=== PATIENT | female | born 2000 | race Caucasian/White ===

== ENCOUNTER 2023-08-16 18:04 | Outpatient (CLI) | payer MEDICAID, SELFPAY ==
[2023-08-16 18:19] VITALS: BP 109/66; PULSE 86; PULSE 88; TEMP 37; O2SAT 99
[2023-08-16 19:06] LABS: Appearance Urine Slightly Cloudy (Clear); Bilirubin Urine Negative (Negative); Blood Urine Negative (Negative); Color Urine Light yellow (Yellow); Glucose Urine Negative (Negative); Ketones Urine Negative (Negative); Leukocyte Esterase Urine Negative (Negative); Nitrite Urine Negative (Negative); Protein Urine Negative (Negative); Specific Gravity Urine 1.015 (1.000-1.030); Urobilinogen Urine 0.2 (0.2-1.0)
[2023-08-16 19:28] LABS: RBC Urine 0-2 (0-2); WBC Urine 0-2 (0-5)
[2023-08-16 19:29] LABS: Clue Cells No Clue Cells Seen (None Seen); Trichomonas No Trichomonas Seen (None Seen); Yeast No Yeast Seen (None Seen)
== END 2023-08-16 19:55 | disposition home or self-care (01) ==
LOC: OB OUT 18:04 → OB 18:05
PROVIDERS: Visit Provider Student in an Organized Health Care Education/Training Program
DX: O47.02 False labor before 37 completed weeks of gestation, second trimester (principal); Z3A.21 21 weeks gestation of pregnancy
CPT/HCPCS: 81001; 81003; 87210; G0463

== ENCOUNTER 2023-08-23 18:34 | Outpatient (CLI) | payer MEDICAID, SELFPAY ==
[2023-08-23 18:44] VITALS: BP 109/69; PULSE 84; PULSE 85; O2SAT 100
[2023-08-23 19:03] VITALS: TEMP 36.8
[2023-08-23 19:06] LABS: Appearance Urine Cloudy (Clear); Bilirubin Urine Negative (Negative); Blood Urine Negative (Negative); Color Urine Yellow (Yellow); Glucose Urine Negative (Negative); Ketones Urine Negative (Negative); Leukocyte Esterase Urine Negative (Negative); Nitrite Urine Negative (Negative); Protein Urine Negative (Negative); Specific Gravity Urine 1.015 (1.000-1.030); Urobilinogen Urine 0.2 (0.2-1.0); pH Urine 8.5 (5.0-8.5)
[2023-08-23 19:18] LABS: RBC Urine 0-2 (0-2); WBC Urine 0-2 (0-5)
[2023-08-23 19:19] LABS: Amorphous Sediment Urine Moderate
[2023-08-23] MEDS: LACTATED RINGERS 1000 ML IV (19:45)
[2023-08-23] MEDS: ONDANSETRON 2 MG/ML inj 4 MG IVP (20:09)
[2023-08-23 20:11] LABS: Yeast No Yeast Seen (None Seen)
[2023-08-23 20:12] LABS: Clue Cells No Clue Cells Seen (None Seen); Trichomonas No Trichomonas Seen (None Seen)
--- NOTE | 2023-08-23 21:34 | P.OBLDTN_ITS ---
OB - Triage/Final Diagnosis Visit Information Time Seen by Provider: 21:34 Date Seen: 08/23/23 Date of evaluation: 08/23/23 Narrative: The patient is a 23 year old 3 para 0 at 22 weeks gestation , who presents with abdominal cramping. Patient had sharp abdominal pain at 2pm today. She came in for evaluation. has had more mild pain since. Intermittent sharp pain in the mid lower abdomen and sometimes on either side. She has had nausea and a couple episodes of vomiting today. Reports normal movement. No bleeding, gushes, abnormal discharge. No pain with urination. Patient states she earlier had pressure in her vagina like a bowling ball was coming out. She reports she is concerned about placental abruption and her baby dying. Reason for evaluation: threatened labor Evaluation Cervical dilation (cm): 0 Laboratory results: Laboratory Tests 08/23/23 08/23/23 Range/Units 19:59 18:57 Urine Color Yellow (Yellow) Urine Appearance Cloudy A (Clear) Urine pH 8.5 (5.0-8.5) Ur Specific Crawford 1.015 (1.000-1.030) Urine Protein Negative (Negative) Urine Glucose (UA) Negative (Negative) Urine Ketones Negative (Negative) Urine Blood Negative (Negative) Urine Nitrite Negative (Negative) Urine Bilirubin Negative (Negative) Urine Urobilinogen 0.2 (0.2-1.0) Ur Leukocyte Esterase Negative (Negative) Urine RBC 0-2 (0-2) Urine WBC 0-2 (0-5) Ur Squamous Epith Cells None (None-Few) Amorphous Sediment Moderate A (None) Urine Bacteria None (None) Vaginal Trichomonas No Trichomonas Seen (None Seen) Vaginal Yeast No Yeast Seen (None Seen) Vaginal Clue Cells No Clue Cells Seen (None Seen) Vital signs: Vital Signs - 24 hr 08/23/23 18:44 08/23/23 19:03 Temperature 98.2 F Pulse Rate 84 Blood Pressure 109/69 Pulse Oximetry 100 Comments: Resting comfortably in bed. Intermittently winces in pain. Abdominal exam shows no palpable contraction. Tender diffusely on abdomen, but especially at umbilicus (notable for small umbilical hernia) and tender over pubic symphisis. Speculum exam shows closed cervix, no significant discharge. Fetus (Single) Heart Rate Baseline: 140 Correction Variability: Moderate (6-25) Monitor Accelerations: Present Monitor Decelerations: None Final Diagnosis (1) Abdominal pain affecting : Status: Acute Problem details: Patient presents with intermittent abdominal pain. She has not had any contractions on monitor. Given 1 bag IV fluids with some improvement in severity. Baby FHT looks great for gestational age. Speculum exam is done for concern for cervical insufficiency, but cervix is visualized and is closed. UA and wet prep reassuring. I suspect patient may have pubic symphysis pain, umbilical hernia pain and some round ligament pain all causing significant anxiety (as patient declines taking her sertraline which she has been on historically). Baby reassuring. Discussed reasons to return to care and supportive cares in the meantime. Recommended miralax for bowel movements. Follow up in clinic with me on Saturday, sooner with concerns. Total Time Spent Total Time Spent: 35 minutes
--- NOTE | 2023-08-23 22:31 | PC.OBNST ---
NST Note NST Note Start: 08/23/23 18:32 Freq: ONCE Status: Discharge Protocol: Document 08/23/23 21:40 SDD (Rec: 08/23/23 22:30 SDD [id number]) NST Note 3 Para (# of births) 0 EDC 12/27/23 Gestational Age In Weeks & Days 22 Weeks & 0 Days Patient Presented with Complaint(s) of Pain,Nausea and vomiting If Pain, describe location Abdominal and back pain Other Complaints Nausea and heartburn Reactive Yes Appropriate for Gestational Age Yes RN Andrew Beaver Date 08/23/23 Reactive Yes Appropriate for Gestational Age Yes Alejandra Kevin Date 08/23/23 OB NST charge Yes Complete NST Note via Write Note Yes The provider's electronic signature indicates the NST is reactive/appropriate for gestational age. *Note to provider: If an addendum is required, open the patient's chart and click on the note under the Nurse/Allied Health tab.
== END 2023-08-23 21:46 | disposition home or self-care (01) ==
LOC: OB OUT 18:35 → OB 18:35
PROVIDERS: Visit Provider Family Medicine
DX: O26.899 Other specified pregnancy related conditions, unspecified trimester (principal); R10.9 Unspecified abdominal pain; Z3A.22 22 weeks gestation of pregnancy
CPT/HCPCS: 59025; 81001; 81003; 87210; G0463; J2405; J7120

== ENCOUNTER 2023-09-18 18:16 | Outpatient (CLI) | payer MEDICAID, SELFPAY ==
[2023-09-18] VITALS (9 sets, daily range): BP systolic 116; BP diastolic 63; PULSE 88–101; RESP 16; TEMP 36.8; O2SAT 98–99
[2023-09-18 19:00] LABS: Clue Cells No Clue Cells Seen (None Seen); Trichomonas No Trichomonas Seen (None Seen); Yeast No Yeast Seen (None Seen)
--- NOTE | 2023-09-18 19:19 | PC.OBNST ---
NST Note NST Note Start: 09/18/23 18:25 Freq: ONCE Status: Active Protocol: Document 09/18/23 19:16 YU (Rec: 09/18/23 19:18 JRAmanda [id number]) NST Note 3 Para (# of births) 0 EDC 12/27/23 Gestational Age In Weeks & Days 25 Weeks & 5 Days Patient Presented with Complaint(s) of Contractions/cramping, Decreased movement Reactive No Appropriate for Gestational Age Yes MERON Barrera RN Date 09/18/23 Reactive No Appropriate for Gestational Age Yes MERON Elmore RN Date 09/18/23 OB NST charge Yes Complete NST Note via Write Note Yes The provider's electronic signature indicates the NST is reactive/appropriate for gestational age. *Note to provider: If an addendum is required, open the patient's chart and click on the note under the Nurse/Allied Health tab.
--- NOTE | 2023-10-16 07:46 | W.PM.NSTNOTE ---
NST Note NST Note NST Note: NST Note NST Note Start: 09/18/23 18:25 Freq: ONCE Status: Discharge Protocol: Document 09/18/23 19:16 YU (Rec: 09/18/23 19:18 YU [id number]) NST Note 3 Para (# of births) 0 EDC 12/27/23 Gestational Age In Weeks & Days 25 Weeks & 5 Days Patient Presented with Complaint(s) of Contractions/cramping, Decreased movement Reactive No Appropriate for Gestational Age Yes MERON Barrera RN Date 09/18/23 Reactive No Appropriate for Gestational Age Yes MERON Elmore RN Date 09/18/23 OB NST charge Yes Complete NST Note via Write Note Yes Addendum: NST reviewed independently by myself. NST appropriate for gestational age. Baseline 140 BPM Accels No decels Moderate variability
== END 2023-09-18 19:30 | disposition home or self-care (01) ==
LOC: OB OUT 18:17 → OB 18:20
PROVIDERS: Visit Provider Student in an Organized Health Care Education/Training Program
DX: O36.8120 Decreased fetal movements, second trimester, not applicable or unspecified (principal); O47.02 False labor before 37 completed weeks of gestation, second trimester; Z3A.25 25 weeks gestation of pregnancy
CPT/HCPCS: 59025; 81003; 87210; G0463

== ENCOUNTER 2023-10-21 12:59 | Outpatient (CLI) | payer MEDICAID, SELFPAY ==
[2023-10-21] VITALS (16 sets, daily range): BP systolic 109–111; BP diastolic 59–65; PULSE 82–127; RESP 18; TEMP 36.9; O2SAT 93–99
[2023-10-21 15:04] LABS: Appearance Urine Clear (Clear); Bilirubin Urine Negative (Negative); Blood Urine Negative (Negative); Color Urine Yellow (Yellow); Glucose Urine Negative (Negative); Ketones Urine Negative (Negative); Leukocyte Esterase Urine Negative (Negative); Nitrite Urine Negative (Negative); Protein Urine 1+ (Negative); Specific Gravity Urine 1.025 (1.000-1.030); Urobilinogen Urine 0.2 (0.2-1.0); pH Urine 6.5 (5.0-8.5)
[2023-10-21 15:13] LABS: Amnisure Rom* Negative
[2023-10-21 15:27] LABS: RBC Urine 0-2 (0-2); WBC Urine 0-2 (0-5)
[2023-10-21 15:52] LABS: Bacterial Vaginosis* Negative (Negative); Candida glab/krus NOT DETECTED (No Detected); Candida species NOT DETECTED (No Detected); Trichomonas vaginalis NOT DETECTED (No Detected)
--- NOTE | 2023-10-21 18:10 | PC.OBNST ---
NST Note NST Note Start: 10/21/23 13:08 Freq: ONCE Status: Active Protocol: Document 10/21/23 18:09 YU (Rec: 10/21/23 18:10 JRAmanda [id number]) NST Note 3 Para (# of births) 0 EDC 12/27/23 Gestational Age In Weeks & Days 30 Weeks & 3 Days Patient Presented with Complaint(s) of Decreased movement,Other Other Complaints Vaginal bleeding Reactive Yes Appropriate for Gestational Age Yes MERON Barrera RN Date 10/21/23 Reactive Yes Appropriate for Gestational Age Yes MERON Patel RN Date 10/21/23 OB NST charge Yes Complete NST Note via Write Note Yes The provider's electronic signature indicates the NST is reactive/appropriate for gestational age. *Note to provider: If an addendum is required, open the patient's chart and click on the note under the Nurse/Allied Health tab.
--- NOTE | 2023-10-31 14:16 | PC.OBNST ---
NST Note NST Note Start: 10/21/23 13:08 Freq: ONCE Status: Discharge Protocol: Document 10/21/23 18:09 YU (Rec: 10/21/23 18:10 YU [id number]) NST Note 3 Para (# of births) 0 EDC 12/27/23 Gestational Age In Weeks & Days 30 Weeks & 3 Days Patient Presented with Complaint(s) of Decreased movement,Other Other Complaints Vaginal bleeding Reactive Yes Appropriate for Gestational Age Yes RN Alysa Barrera RN Date 10/21/23 Reactive Yes Appropriate for Gestational Age Yes MERON Patel RN Date 10/21/23 OB NST charge Yes Complete NST Note via Write Note Yes The provider's electronic signature indicates the NST is reactive/appropriate for gestational age. *Note to provider: If an addendum is required, open the patient's chart and click on the note under the Nurse/Allied Health tab.
== END 2023-10-21 16:45 | disposition home or self-care (01) ==
LOC: OB OUT 13:00 → OB 13:01
PROVIDERS: Visit Provider Family Medicine
DX: O36.8930 Maternal care for other specified fetal problems, third trimester, not applicable or unspecified (principal); Z3A.30 30 weeks gestation of pregnancy
CPT/HCPCS: 59025; 81001; 81003; 81513; 84112; 87481; 87661; G0463

== ENCOUNTER 2023-11-14 16:33 | Outpatient (CLI) | payer OTHER, SELFPAY ==
[2023-11-14 16:53] VITALS: PULSE 84; O2SAT 98
[2023-11-14 16:54] VITALS: BP 110/65; PULSE 78
[2023-11-14 17:18] LABS: Appearance Urine Clear (Clear); Bilirubin Urine Negative (Negative); Blood Urine Negative (Negative); Color Urine Yellow (Yellow); Glucose Urine Negative (Negative); Ketones Urine Negative (Negative); Leukocyte Esterase Urine Trace (Negative); Nitrite Urine Negative (Negative); Protein Urine Trace (Negative); Specific Gravity Urine 1.025 (1.000-1.030); Urobilinogen Urine 0.2 (0.2-1.0)
[2023-11-14 17:38] LABS: Bacteria Urine Few; Squamous Epithelial Cell Urine Few (None-Few)
[2023-11-14 17:39] LABS: Amnisure Rom* Negative; Clue Cells No Clue Cells Seen (None Seen); Trichomonas No Trichomonas Seen (None Seen); Yeast No Yeast Seen (None Seen)
--- NOTE | 2023-11-14 18:09 | PC.OBNST ---
NST Note NST Note Start: 11/14/23 17:56 Freq: Status: Active Protocol: Document 11/14/23 18:08 LEON (Rec: 11/14/23 18:08 LEON [id number]) NST Note 3 Para (# of births) 0 EDC 12/27/23 Gestational Age In Weeks & Days 33 Weeks & 6 Days Patient Presented with Complaint(s) of Leaking fluid Reactive Yes Appropriate for Gestational Age Yes MERON Crowell Date 11/14/23 Reactive Yes Appropriate for Gestational Age Yes MERON Marmolejo Date 11/14/23 OB NST charge Yes Complete NST Note via Write Note Yes The provider's electronic signature indicates the NST is reactive/appropriate for gestational age. *Note to provider: If an addendum is required, open the patient's chart and click on the note under the Nurse/Allied Health tab.
--- NOTE | 2023-11-24 19:36 | PC.OBNST ---
NST Note NST Note Start: 11/14/23 17:56 Freq: Status: Discharge Protocol: Document 11/14/23 18:08 LEON (Rec: 11/14/23 18:08 DIANA [id number]) NST Note 3 Para (# of births) 0 EDC 12/27/23 Gestational Age In Weeks & Days 33 Weeks & 6 Days Patient Presented with Complaint(s) of Leaking fluid Reactive Yes Appropriate for Gestational Age Yes MERON Crowell Date 11/14/23 Reactive Yes Appropriate for Gestational Age Yes MERON Marmolejo Date 11/14/23 OB NST charge Yes Complete NST Note via Write Note Yes The provider's electronic signature indicates the NST is reactive/appropriate for gestational age. *Note to provider: If an addendum is required, open the patient's chart and click on the note under the Nurse/Allied Health tab.
== END 2023-11-14 18:10 | disposition home or self-care (01) ==
LOC: OB OUT 16:36 → OB 16:36
PROVIDERS: Visit Provider Family Medicine
DX: O47.03 False labor before 37 completed weeks of gestation, third trimester (principal); Z3A.33 33 weeks gestation of pregnancy
CPT/HCPCS: 59025; 81001; 81003; 84112; 87086; 87210; G0463

== ENCOUNTER 2023-12-08 21:45 | Outpatient (CLI) | payer OTHER, SELFPAY ==
[2023-12-08 21:53] VITALS: BP 120/64; PULSE 100
--- NOTE | 2023-12-08 22:31 | PC.OBNST ---
NST Note NST Note Start: 12/08/23 21:50 Freq: ONCE Status: Active Protocol: Document 12/08/23 22:29 [facility] (Rec: 12/08/23 22:31 [facility] Desktop) NST Note 3 Para (# of births) 0 EDC 12/27/23 Gestational Age In Weeks & Days 37 Weeks & 2 Days Patient Presented with Complaint(s) of Decreased movement Reactive Yes Appropriate for Gestational Age Yes RN Alejandra Bach RN Date 12/08/23 Reactive Yes Appropriate for Gestational Age Yes MERON Fabian Date 12/08/23 OB NST charge Yes Complete NST Note via Write Note Yes The provider's electronic signature indicates the NST is reactive/appropriate for gestational age. *Note to provider: If an addendum is required, open the patient's chart and click on the note under the Nurse/Allied Health tab.
== END 2023-12-08 22:20 | disposition home or self-care (01) ==
LOC: OB OUT 21:46 → OB 21:47
PROVIDERS: Visit Provider Family Medicine
DX: O36.8130 Decreased fetal movements, third trimester, not applicable or unspecified (principal); Z3A.37 37 weeks gestation of pregnancy
CPT/HCPCS: 59025; G0463

== ENCOUNTER 2023-12-11 16:40 | Outpatient (CLI) | payer OTHER, SELFPAY ==
[2023-12-11] MEDS: ONDANSETRON 2 MG/ML inj 4 MG IVP (17:07)
[2023-12-11 17:39] LABS: Amnisure Rom* Negative
[2023-12-11 17:40] VITALS: BP 140/86; PULSE 113
[2023-12-11 17:42] VITALS: TEMP 36.8
[2023-12-11 17:55] VITALS: BP 128/80; PULSE 112
--- NOTE | 2023-12-11 19:18 | PM.OBLDTN ---
OB - Triage/Final Diagnosis Visit Information Date Seen: 12/11/23 Narrative: The patient is a 23 year old 3 para 0 at 37.5 weeks gestation, who presents with painful contractions. Evaluated in triage. SVE on presentation was 2/40/-3, recheck at 2 hours was relatively unchanged. Amnisure negative. FHT: moderate variability, baseline 140 bpm, accels, no decels. Unable to monitor contraction pattern due to patient movement. Suspect latent labor, plan to return home with vistaril/morphine. Patient agreeable to plan. Evaluation Laboratory results: Laboratory Tests 12/11/23 Range/Units 17:23 Membrane Rupture Negative Vital signs: Vital Signs - 24 hr 12/11/23 17:40 12/11/23 17:42 12/11/23 17:55 Temperature 98.3 F Pulse Rate 113 H 112 H Blood Pressure 140/86 H 128/80
--- NOTE | 2023-12-11 19:31 | W.PM.NSTNOTE ---
NST Note NST Note NST Note: FHT: moderate variability, baseline 140 bpm, accels, no decels. Reactive NST.
[2023-12-11] MEDS: hydrOXYzine pamoate 25 MG CAPSULE 100 MG PO (19:46)
[2023-12-11] MEDS: MORPHINE 10 MG/ML inj IM (19:46)
--- NOTE | 2023-12-11 21:05 | PC.OBNST ---
NST Note NST Note Start: 12/11/23 16:53 Freq: ONCE Status: Active Protocol: Document 12/11/23 21:03 RRP (Rec: 12/11/23 21:04 RRP [id number]) NST Note 3 Para (# of births) 0 EDC 12/27/23 Gestational Age In Weeks & Days 37 Weeks & 5 Days Patient Presented with Complaint(s) of Contractions/cramping,Pain If Pain, describe location back Reactive Yes Appropriate for Gestational Age Yes RN Grace Jane RN Date 12/11/23 Reactive Yes Appropriate for Gestational Age Yes MERON Aguirre RN Date 12/11/23 OB NST charge Yes Complete NST Note via Write Note Yes The provider's electronic signature indicates the NST is reactive/appropriate for gestational age. *Note to provider: If an addendum is required, open the patient's chart and click on the note under the Nurse/Allied Health tab.
== END 2023-12-11 20:05 | disposition home or self-care (01) ==
LOC: OB OUT 16:40 → OB 16:42 → OB OUT 16:45 → OB 16:47 → OB OUT 16:51 → OB 16:51
PROVIDERS: PCP Student in an Organized Health Care Education/Training Program; Visit Provider Student in an Organized Health Care Education/Training Program
DX: O47.1 False labor at or after 37 completed weeks of gestation (principal); Z3A.37 37 weeks gestation of pregnancy
CPT/HCPCS: 59025; 84112; G0463; A9270; J2270; J2405

== ENCOUNTER 2023-12-17 02:31 | Inpatient (IN) | payer OTHER, SELFPAY ==
[2023-12-17] VITALS (94 sets, daily range): BP systolic 92–198; BP diastolic 40–89; PULSE 85–163; RESP 16–20; TEMP 36.4–37.1; O2SAT 79–100; BMI 26.6
[2023-12-17 02:27] LABS: Amnisure Rom* POSITIVE
[2023-12-17 03:23] LABS: Basophils Absolute Auto 0.01 K/uL (0.00-0.30); Basophils Percent Auto 0.1 % (0.0-3.0); Eosinophils Absolute Auto 0.02 K/uL (0.00-0.50); Eosinophils Percent Auto 0.2 % (0.0-7.0); Immature Granulocytes Abs Auto 0.07 K/uL (0.00-0.30); Immature Granulocytes Pct Auto 0.7 %; Lymphocytes Percent Auto 16.5 % (20-44); Mean Corpuscular HGB Conc 33 gm/dL (32-36); Mean Corpuscular Hemoglobin 29 pg (26-34); Mean Corpuscular Volume 87 fL (80-100); Monocytes Percent Auto 5.2 % (0.0-11.0); Neutrophils Percent Auto 77.3 % (42.0-72.0); Platelet Count* 192 K/uL (140-440); RDW Coefficient of Variation % 17.3 % (11.5-15.5); Red Blood Count 4.51 m/uL (4.00-5.20); White Blood Count* 9.66 K/uL (4.50-11.00)
[2023-12-17 03:25] LABS: Slide Review Reflex No
[2023-12-17] MEDS: ACETAMINOPHEN 500 MG TABLET 1000 MG PO ×2 (03:30→21:04)
[2023-12-17] MEDS: ONDANSETRON ODT 4 MG TAB PO (03:30)
[2023-12-17] MEDS: LACTATED RINGERS 1000 ML 1,000 ML 1200 ML IV (05:50)
[2023-12-17] MEDS: ROPIVACAINE 0.2% 100 ml 100 ML 12 MG EPIDURAL (06:36)
[2023-12-17] MEDS: LIDOCAINE 2% (PF) 5 ML VIAL EPIDURAL (06:36)
--- NOTE | 2023-12-17 06:41 | P.ANBPRC_ITS ---
PFSH PFSH Social History Smoking Status: Never smoker Meds Home Medications and Allergies Home Medications ?Medication ?Instructions ?Recorded ?Confirmed ?Type sertraline 100 mg tablet 12.5 mg PO QDAY 08/16/23 12/17/23 History levothyroxine 25 mcg tablet 25 mcg PO DAILY 08/23/23 12/17/23 History (Synthroid) ondansetron 4 mg PO .PRN 08/23/23 12/17/23 History famotidine 20 mg tablet (Pepcid) 20 mg PO DAILY 11/14/23 12/17/23 History vit no.133-ferrous 1 tab PO DAILY 12/17/23 12/17/23 History fumarate 28 mg-folic acid 800 mcg tablet () Allergies Allergy/AdvReac Type Severity Reaction Status Date / Time alalex vera AdvReac Intermediate Verified 12/08/23 22:12 Results Labs Labs: Laboratory Results - last 24 hr 12/17/23 12/17/23 02:17 03:05 WBC 9.66 RBC 4.51 Hgb 13.0 Hct 39.0 MCV 87 MCH 29 MCHC 33 RDW Coeff of Calixto 17.3 H Plt Count 192 Neut % (Auto) 77.3 H Lymph % (Auto) 16.5 L Spencer % (Auto) 5.2 Eos % (Auto) 0.2 Baso % (Auto) 0.1 Neut # (Auto) 7.50 H Lymph # (Auto) 1.60 Spencer # (Auto) 0.50 Eos # (Auto) 0.02 Baso # (Auto) 0.01 Abs Immat Gran (auto) 0.07 Imm/Tot Granulo (auto) 0.7 Membrane Rupture POSITIVE Blood Type A Positive Antibody Screen NEGATIVE Vital Signs Vital Signs: Last Vital Signs Temp 98.4 F 12/17/23 05:45 Pulse 133 H 12/17/23 06:38 Resp 20 12/17/23 05:45 BP 111/59 L 12/17/23 06:38 Pulse Ox 100 12/17/23 06:36 Weight: 68.356 kg Height: 160.02 cm Anesthesia Procedures Epidural Insertion Patient Location: OB Start Time: 06:10 Stop Time: 06:45 Start Date: 12/17/23 Stop Date: 12/17/23 Reason for Block: primary anesthetic Patient Position: sitting Performed By: Brian Rivas Preanesthetic Checklist: IV checked, risks and benefits discussed, surgical consent, monitors and equipment checked, pre-op evaluation, timeout performed and anesthesia consent Prep: chlorhexidine gluconate Monitoring: blood pressure monitoring, radiographer cardiac catheterization, continuous pulse oximetry and heart rate Approach: midline Vertebral Space: lumbar (1-5) Needle Type: Tuohy needle Injection Technique: continuous catheter (catheter) Needle gauge: 17 Needle Length (cm): 10 cm Needle Insertion Depth (cm): 5 Catheter Gauge: 19 Catheter Type: multi-orifice Catheter at skin depth (cm): 10 Test Dose Result: negative and lidocaine 1.5% with epinephrine 1 to 200,000
[2023-12-17] MEDS: LACTATED RINGERS 500 ML 500 ML 125 ML IV (07:00)
--- NOTE | 2023-12-17 07:57 | P.OBHP_ITS ---
OB - H&P: HPI Labor/Induction History of Present Illness Time Seen by Provider: 07:57 Date Seen: 12/17/23 Chief Complaint: The patient is a 23 year old 3 para 0 at 38w4d weeks gestation, who presents with SROM and active labor. Patient had SROM at home at 10pm. She has been in latent labor for the last week, states contractions became much more intense after ROM. She arrived at 0130 to labor and delivery, had positive amnisure. She has changed from 2 cm to 5 cm, heath well. She feels well. Dating ultrasound shows 12/29/2023 as due date at 6 weeks. Chief complaint: maternity : 3 Para: 0 Date of last menstrual period: 03/22/23 Estimated date of delivery: 12/27/23 Gestational age based on last menstrual period: 38 Narrative: Isabel Ward is a 23 year old female who presents wtih SROM and active labor History of Present Dating criteria: based on LMP (and 6 week ultrasound) care: good care Ultrasounds: normal 1st trimester US and normal mid trimester US Narrative: has been complicated by anxiety (on low dose sertraline), nausea/vomiting, anemia (s/p iron infusions). Also has history of asthma. Has Labs Blood type: A (+) positive Rubella: immune RPR/VDLR: nonreactive GBS status: negative HBsAG: negative Review of Systems Status of ROS: Reports: 10 or more systems reviewed and unremarkable except as noted in History and below Meds Home Medications and Allergies Home Medications ?Medication ?Instructions ?Recorded ?Confirmed ?Type sertraline 100 mg tablet 12.5 mg PO QDAY 08/16/23 12/17/23 History levothyroxine 25 mcg tablet 25 mcg PO DAILY 08/23/23 12/17/23 History (Synthroid) ondansetron 4 mg PO .PRN 08/23/23 12/17/23 History famotidine 20 mg tablet (Pepcid) 20 mg PO DAILY 11/14/23 12/17/23 History vit no.133-ferrous 1 tab PO DAILY 12/17/23 12/17/23 History fumarate 28 mg-folic acid 800 mcg tablet () Allergies Allergy/AdvReac Type Severity Reaction Status Date / Time aloe vera AdvReac Intermediate Verified 12/08/23 22:12 OB - H&P: Exam Physical Exam: Vital signs: Temp Pulse Resp BP Pulse Ox 97.7 F 113 H 18 103/66 100 12/17/23 07:26 12/17/23 07:43 12/17/23 06:45 12/17/23 07:43 12/17/23 06:51 Constitutional: Constitutional: no acute distress Routine HEENT Exam: Head: Present atraumatic Routine Respiratory Exam: Respiratory: Present CTA bilaterally Routine Cardiovascular Exam: Cardiovascular: RRR, S1 and S2 Detailed Labor and Delivery Exam: Patient Gravid: Yes Dilation (cm): 5 Effacement (%): 90 Contraction frequency (min): 3 Tachysystole: No Contraction intensity: Strong/Firm Fetus (Single): Station: -2 Amniotic Membrane Status: SROM Amniotic Membrane Fluid Description: Clear Heart Rate Baseline: 130 Monitor Accelerations: Present Monitor Decelerations: None L olga Term Variability: Moderate (6-25) Routine Back/Spine/Pelvis Exam: Back/Spine: full ROM Routine Skin Exam: Present intact Routine Neurological Exam: Present alert and oriented X3 Routine Psychiatric Exam: Present normal affect OB - Results Labs Labs: Short CBC 12/17/23 Range/Units 03:05 WBC 9.66 (4.50-11.00) K/uL Hgb 13.0 (12.0-16.0) gm/dL Hct 39.0 (33.0-51.0) % Plt Count 192 (140-440) K/uL OB - Problem Based A/P Additional Plan (1) Term : Problem details: SROM at 10pm, making progress. Received epidural with good results. Status: Acute Plan: - recheck in 2 hours, start pitocin if not making change (2) Subclinical hypothyroidism: Problem details: on synthroid Status: Acute (3) Iron deficiency anemia: Problem details: s/p IV iron, admission hemoglobin looks good Status: Acute Delivery/Labor/Induction Plan Plan: expectant management
[2023-12-17] MEDS: ONDANSETRON 2 MG/ML inj 4 MG IV ×2 (08:26→14:31)
[2023-12-17] MEDS: FAMOTIDINE 20 MG TABLET PO (09:25)
[2023-12-17] MEDS: OXYTOCIN 30 unit/500 ML in NS 30 UNIT/500 ML BAG 300 UNIT IVPB (12:02)
--- NOTE | 2023-12-17 12:34 | PM.OBPNL ---
Subjective Time Seen by Provider: 10:39 Date Seen: 12/17/23 Narrative: Patient's HR and baby's HR were nearly identical. Patient reports feeling like her heart is racing. Objective Exam: Heart tachy but regular. no murmur. Lungs ctab. Anxious appearing Vital Signs: Last Vital Signs Temp 98.4 F 12/17/23 10:37 Pulse 113 H 12/17/23 12:30 Resp 18 12/17/23 06:45 BP 116/59 L 12/17/23 12:30 Pulse Ox 93 12/17/23 11:59 Pelvic Exam Dilation (cm): 10 Effacement (%): 100 Contractions Monitor mode: External Contraction Frequency: 3 Contraction pattern: Regular Contraction intensity: Strong/Firm Pitocin Rate (mU/min): 0 Assessment Assessment: active labor Station: -2 Amniotic Membrane Status: SROM Status: Category ll Heart Rate Baseline: 130 Long-Term Variability: Moderate (6-25) Monitor Accelerations: Present Monitor Decelerations: None Plan Plan: - scalp placed to better monitor baby/mom's heart rate - pushing started
--- NOTE | 2023-12-17 12:36 | W.PM.VAGDE_ITS ---
OB Procedure Vag Delivery Mother Details Mother Details: The patient is a 23 year-old, 3, Para 0, admitted on 12/17/23 at 38.3 Days gestation with SROM at 10pm on 12/15. : 3 Para: 0 Weeks Gestation: 38.4 Additional Details Amniotic Membrane Status: SROM Amniotic Membrane Rupture Date: 12/16/23 Amniotic Membrane Rupture Time: 22:00 Amniotic Membrane Fluid Description: Meconium Stained Analgesia/Anesthesia Type: Epidural Waterbirth: No Pitcoin: No Intrapartal Events: Mod/Heavy Meconium Fluid Labor Onset: 07:06 Complete: 10:04 Pushin:39 Heart: heart tones during second stage were very close to mom's HR. scalp was placed for monitoring more closely. FHT had deep variables with pushing, recovered. Near end of pushing required pushing on side to allow for recovery. Good variability. Baseline 135 Delivery Details Delivery Date: 12/17/23 Delivery Time: 11:59 Route of delivery: Gender: Male Infant Viability: Alive; Heart Rate Present Position at Delivery: OA Delivery Details: Patient was admitted after SROM at home. Was 2.5 cm on admission. Progressed well without intervention. Received epidural for analgesia. Became complete at 1004. I was called to bedside. We started pushing at 10:39. Patient pushed v laura effectively, delivering a viable male over intact perineum at 1159. Nuchal x 2, reduced 1 and delivered through 2nd. was placed on maternal abdomen.? Cord was clamped and cut after a 30-60 second delay by FOB who was in attendance. Due to meconium fluid, Rosario SAUNDERS was in attendance at delivery, please see her note for details. There was also terminal meconium fluid. Nose and mouth were bulb suctioned.? Infant weight pending. 1 Minute Interval Total Score: 8 5 Minute Interval Total Score: 9 Additional Details Shoulder Dystocia: No Placenta Delivery Time: 12:09 Placental Delivery Description: Spontaneous Delivery repair: Vicryl Procedure Done: Global Blood Loss: 100 Laceration: Vaginal - 1st Degree (small vaginal 1st degree tear was sutured for hemostasis) Episiotomy Description: None Blood Loss Measurement Type: QBL Bakri Used: No Sponge/Need Count Correct: Yes Cord Vessel Description: 3 Vessels, Nuchal Cord (x2), Reduced and Delivered through Event Summary Status: Mother and infant were stable after delivery. Disposition: no change
[2023-12-17] MEDS: IBUPROFEN 600 MG TABLET PO (15:45)
[2023-12-17] MEDS: BENZOCAINE/MENTHOL SPRAY 85 GM AEROSOL 1 APPLIC TOPICAL (21:05)
[2023-12-17] MEDS: LANOLIN CREAM 1 APPLIC TOPICAL (21:05)
[2023-12-18 02:00] VITALS: BP 122/73; PULSE 97; RESP 16; TEMP 36.4; O2SAT 96
[2023-12-18] MEDS: IBUPROFEN 600 MG TABLET PO ×2 (02:30→08:39)
[2023-12-18] MEDS: ACETAMINOPHEN 500 MG TABLET 1000 MG PO ×2 (05:39→13:12)
[2023-12-18 06:15] VITALS: BP 111/73; PULSE 83; RESP 16; TEMP 36.6; O2SAT 97
[2023-12-18 06:45] LABS: Hemoglobin* 11.4 gm/dL (12.0-16.0)
[2023-12-18 08:19] VITALS: BP 117/77; PULSE 87; RESP 16; TEMP 36.4; O2SAT 98
--- NOTE | 2023-12-18 08:33 | P.DS_ITS ---
DS: Providers Provider Date Seen: 12/18/23 Date of admission: 12/17/23 02:31 Primary care physician: Emily Xie MD Admitting Clinician: Kitty Gaona MD Attending Physician on discharge: Kitty Gaona MD DS: Diagnosis Discharge Diagnosis (1) Term : Status: Acute Problem details: SROM at 10pm, making progress. Received epidural with good results. (2) Subclinical hypothyroidism: Status: Acute Problem details: on synthroid (3) Iron deficiency anemia: Status: Acute Problem details: s/p IV iron, admission hemoglobin looks good Exam Const: Vital Signs, click to edit/add: Vital Signs - 24 hr 12/17/23 08:35 12/17/23 08:36 12/17/23 08:40 Temperature 98.0 F Pulse Rate Pulse Rate [Pulse Oximeter] Respiratory Rate Blood Pressure 110/50 L Blood Pressure [Ri ght Arm] Pulse Oximetry 99 Oxygen Delivery Me thod 12/17/23 08:45 12/17/23 08:50 12/17/23 08:53 Temperature Pulse Rate Pulse Rate [Pulse Oximeter] Respiratory Rate Blood Pressure 110/62 Blood Pressure [Ri ght Arm] Pulse Oximetry 97 97 Oxygen Delivery Me thod 12/17/23 08:55 12/17/23 09:00 12/17/23 09:05 Temperature Pulse Rate 101 H Pulse Rate [Pulse Oximeter] Respiratory Rate Blood Pressure 111/63 Blood Pressure [Ri ght Arm] Pulse Oximetry 98 97 97 Oxygen Delivery Me thod 12/17/23 09:10 12/17/23 09:11 12/17/23 09:15 Temperature Pulse Rate 121 H Pulse Rate [Pulse Oximeter] Respiratory Rate Blood Pressure 99/56 L Blood Pressure [Ri ght Arm] Pulse Oximetry 97 98 Oxygen Delivery Me thod 12/17/23 09:20 12/17/23 09:25 12/17/23 09:29 Temperature Pulse Rate 113 H Pulse Rate [Pulse Oximeter] Respiratory Rate Blood Pressure 102/58 L Blood Pressure [Ri ght Arm] Pulse Oximetry 97 97 Oxygen Delivery Me thod 12/17/23 09:30 12/17/23 09:33 12/17/23 09:35 Temperature 97.9 F Pulse Rate Pulse Rate [Pulse Oximeter] Respiratory Rate Blood Pressure Blood Pressure [Ri ght Arm] Pulse Oximetry 97 96 Oxygen Delivery Me thod 12/17/23 09:40 12/17/23 09:41 12/17/23 09:45 Temperature Pulse Rate 121 H Pulse Rate [Pulse Oximeter] Respiratory Rate Blood Pressure 118/70 Blood Pressure [Ri ght Arm] Pulse Oximetry 97 96 Oxygen Delivery Me thod 12/17/23 09:50 12/17/23 09:55 12/17/23 10:00 Temperature Pulse Rate Pulse Rate [Pulse Oximeter] Respiratory Rate Blood Pressure Blood Pressure [Ri ght Arm] Pulse Oximetry 97 96 97 Oxygen Delivery Me thod 12/17/23 10:05 12/17/23 10:11 12/17/23 10:25 Temperature Pulse Rate 141 H 133 H Pulse Rate [Pulse Oximeter] Respiratory Rate Blood Pressure 114/56 L 114/63 Blood Pressure [Ri ght Arm] Pulse Oximetry 97 Oxygen Delivery Me thod 12/17/23 10:37 12/17/23 10:41 12/17/23 10:56 Temperature 98.4 F Pulse Rate 133 H 134 H Pulse Rate [Pulse Oximeter] Respiratory Rate Blood Pressure 122/64 193/87 H Blood Pressure [Ri ght Arm] Pulse Oximetry Oxygen Delivery Me thod 12/17/23 10:58 12/17/23 11:10 12/17/23 11:13 Temperature Pulse Rate 126 H 137 H Pulse Rate [Pulse Oximeter] Respiratory Rate Blood Pressure 130/60 126/57 L Blood Pressure [Ri ght Arm] Pulse Oximetry 99 Oxygen Delivery Me thod 12/17/23 11:16 12/17/23 11:18 12/17/23 11:23 Temperature Pulse Rate Pulse Rate [Pulse Oximeter] Respiratory Rate Blood Pressure Blood Pressure [Ri ght Arm] Pulse Oximetry 93 79 L 98 Oxygen Delivery Me thod 12/17/23 11:25 12/17/23 11:28 12/17/23 11:33 Temperature Pulse Rate 122 H Pulse Rate [Pulse Oximeter] Respiratory Rate Blood Pressure 101/51 L Blood Pressure [Ri ght Arm] Pulse Oximetry 99 99 Oxygen Delivery Me thod 12/17/23 11:34 12/17/23 11:38 12/17/23 11:40 Temperature Pulse Rate 133 H Pulse Rate [Pulse Oximeter] Respiratory Rate Blood Pressure 94/50 L Blood Pressure [Ri ght Arm] Pulse Oximetry 85 L 99 Oxygen Delivery Me thod 12/17/23 11:44 12/17/23 11:48 12/17/23 11:49 Temperature Pulse Rate Pulse Rate [Pulse Oximeter] Respiratory Rate Blood Pressure Blood Pressure [Ri ght Arm] Pulse Oximetry 97 90 92 Oxygen Delivery Me thod 12/17/23 11:54 12/17/23 11:56 12/17/23 11:59 Temperature Pulse Rate 142 H Pulse Rate [Pulse Oximeter] Respiratory Rate Blood Pressure 115/64 Blood Pressure [Ri ght Arm] Pulse Oximetry 89 93 Oxygen Delivery Me thod 12/17/23 12:15 12/17/23 12:15 12/17/23 12:30 Temperature 97.8 F Pulse Rate 121 H 113 H Pulse Rate [Pulse Oximeter] Respiratory Rate Blood Pressure 118/56 L 116/59 L Blood Pressure [Ri ght Arm] Pulse Oximetry Oxygen Delivery Me thod 12/17/23 12:30 12/17/23 12:45 12/17/23 12:45 Temperature 98.4 F 98.6 F Pulse Rate 105 H Pulse Rate [Pulse Oximeter] Respiratory Rate Blood Pressure 116/64 Blood Pressure [Ri ght Arm] Pulse Oximetry Oxygen Delivery Me thod 12/17/23 13:00 12/17/23 13:00 12/17/23 13:05 Temperature 98.0 F Pulse Rate 116 H 100 Pulse Rate [Pulse Oximeter] Respiratory Rate Blood Pressure 156/89 H 119/72 Blood Pressure [Ri ght Arm] Pulse Oximetry Oxygen Delivery Me thod 12/17/23 13:05 12/17/23 13:15 12/17/23 13:15 Temperature 97.7 F 98.6 F Pulse Rate 85 Pulse Rate [Pulse Oximeter] Respiratory Rate Blood Pressure 121/71 Blood Pressure [Ri ght Arm] Pulse Oximetry Oxygen Delivery Me thod 12/17/23 13:30 12/17/23 13:30 12/17/23 13:45 Temperature 98.6 F Pulse Rate 96 101 H Pulse Rate [Pulse Oximeter] Respiratory Rate Blood Pressure 111/70 119/70 Blood Pressure [Ri ght Arm] Pulse Oximetry Oxygen Delivery Me thod 12/17/23 13:45 12/17/23 14:00 12/17/23 14:15 Temperature 98.0 F Pulse Rate 100 92 Pulse Rate [Pulse Oximeter] Respiratory Rate Blood Pressure 119/84 118/79 Blood Pressure [Ri ght Arm] Pulse Oximetry Oxygen Delivery Me thod 12/17/23 14:15 12/17/23 18:05 12/17/23 21:35 Temperature 98.0 F 97.9 F 98.1 F Pulse Rate Pulse Rate [Pulse Oximeter] 98 95 Respiratory Rate 16 16 Blood Pressure Blood Pressure [Ri ght Arm] 108/73 121/77 Pulse Oximetry 97 95 Oxygen Delivery Me thod Room Air Room Air 12/18/23 02:00 12/18/23 06:15 Temperature 97.5 F L 97.9 F Pulse Rate Pulse Rate [Pulse Oximeter] 97 83 Respiratory Rate 16 16 Blood Pressure Blood Pressure [Ri ght Arm] 122/73 111/73 Pulse Oximetry 96 97 Oxygen Delivery Me thod Room Air Room Air Documenting provider has reviewed patient's vital signs: yes Common normals: no apparent distress, average body habitus, oriented x3 and healthy appearing GI: Common normals: Normal to inspection, nondistended, normoactive bowel sounds present and soft to palpation Palpation: soft Other: Uterus firm at umbilicus Extremity: Common normals: normal to inspection and no pedal edema Neuro: Common normals: oriented x3 OB - DS: Summary Hospital Course Hospital Course: The patient is a 23 year old G 3 P 1 at 38+5 weeks gestation that was admitted to the Center on 12/17/23 for SROM. She had an uncomplicated vaginal delivery. She delivered a viable male infant. She is breast feeding, although plans to bottle EBM at home. the patient has done well. Peripartum Data Infant delivery method: Vaginal Laceration description: Vaginal - 1st Degree complications: none Infant Gender: Male Discharge Plan: Home Status at Discharge Functional status at discharge: independent ambulation Overall status at discharge: patient is progressing back to baseline Time Spent with Patient Time attestation: Total time spent providing and/or coordinating discharge services: Time spent: Less than 30 minutes Discharge Plan Discharge Disposition: Home, Self-Care Date of Admission: 12/17/23 02:31 Attending Provider on Discharge: Shoshana Arzate Primary Care Provider: Maxine Olguin Condition: Improved Anticipated Discharge Date/Time: 12/18/23 Discharge Medications: Continued sertraline 100 mg tablet 12.5 mg PO QDAY famotidine [Pepcid] 20 mg tablet 20 mg PO DAILY 28-800 mg-mcg tablet 1 tab PO DAILY Discontinued ondansetron 4 mg PO .PRN levothyroxine [Synthroid] 25 mcg tablet 25 mcg PO DAILY Discharge Orders: Discharge Order (Routine); Ordered 12/18/23 Ordered By: Shoshana Arzate Patient Education: OB Vaginal/Breast Feeding Activity Level: No Restrictions Activity Detail: nothing per vagina x6 weeks Discharge Diet: Regular Follow Up Appointments: Maxine Olguin MD [Primary Care Provider] - Emily Xie MD [Staff Physician] - (in 6 weeks for visit) Forms: [facility] Info Instructions
[2023-12-18] MEDS: DOCUSATE SODIUM 100 MG CAPSULE PO (08:38)
[2023-12-18] MEDS: SERTRALINE 50 MG TABLET 25 MG PO (08:39)
--- NOTE | 2023-12-18 13:02 | PM.ANPOST ---
Post Anesthesia Note Post Anesthesia Note Patient seen: Inpatient Respiratory Status: adequate Cardiovascular Status: adequate Mental Status: baseline Pain: adequate Temp: baseline Anesthetic awareness: N/A Complications: none Follow care: none
[2023-12-18] MEDS: SIMETHICONE 80 MG TAB.CHEW PO (13:13)
[2023-12-19 01:21] LABS: Rapid Plasma Reagin (RPR) Non Reactive (Non Reactive)
== END 2023-12-18 16:40 | disposition home or self-care (01) | DRG 560 ==
LOC: OB OUT 02:31 → OB 02:31
PROVIDERS: Family Medicine; Admitting Provider Family Medicine; PCP Student in an Organized Health Care Education/Training Program; Visit Provider Family Medicine
DX: O99.284 Endocrine, nutritional and metabolic diseases complicating childbirth (principal); O99.344 Other mental disorders complicating childbirth; F41.9 Anxiety disorder, unspecified; O77.0 Labor and delivery complicated by meconium in amniotic fluid; O70.0 First degree perineal laceration during delivery; E03.8 Other specified hypothyroidism; O99.02 Anemia complicating childbirth; D50.9 Iron deficiency anemia, unspecified; Z3A.38 38 weeks gestation of pregnancy; Z37.0 Single live birth
CPT/HCPCS: 01967; 36415; 84112; 85018; 85025; 86592; 86850; 86900; 86901; A9270; J2371; J2405; J2795; J7120

== ENCOUNTER 2024-01-02 14:19 | Outpatient (CLI) | payer OTHER, SELFPAY ==
--- NOTE | 2024-01-02 15:34 | P.LACCB_ITS ---
Consult Note - Mom Date of Visit Date of visit: 01/02/24 Reason for consultation: Assistance Needed Visit Code: Visit Patient's Information Phone number: [phone] : 3 Para: 2 Allergies aloe vera Adverse Reaction (Intermediate, Verified 12/08/23 22:12) Mother's medical history: Hypothyroid Work Plans: Not sure yet Delivery Information Delivery type: Vaginal Gestational Age: 38 Gestational Weight For Age: AGA Weight: 3.2 kg Discharge Weight: 3.078 kg Baby's Information Baby's Age at Visit: 16 days Baby's Provider or Clinic: [facility] Jaundice: No Past Experience Past Experience: No Current Frequency of Day Feedings: every 2-3 hours Frequency of Night Feedings: every 3 hours or so Latch: current not ; only pumped EBM Goals: breastmilk for at least 12 mos, hopefully 18 mos Pumping Pumping: Yes Quantity Pumped: 2.5-4oz ea breast every 2 hours; minimum of 50oz/day Supplementing EBM Supplement: Yes (takes 2.5-3 oz/feeding) Formula Supplement: No Baby Elimination Number of Wet Diapers a Day: ea feeding Number of BM a Day: 5-6; yellow, seedy Breast/Nipple Condition Breast Information: Breasts are symmetrical with rounded lower quadrants, intramammary distance is less than 1.5 inches. No erythema. Nipples are supple, everted prior to feeding. Breast Shape: Round and Firm Engorgement: No Maternal Nipple Condition - Left: Common Nipple Maternal Nipple Condition - Right: Common Nipple Sore Nipples: No Interventions for Sore Nipples: Soothies/Hydrogel Pads Baby Assessment Skin: Normal Tongue/frenulum: Normal/elastic Palate: Average Lips: Relaxed and Symmetrical Jaw Alignment: Symmetrical Mucosa: [place], moist Onsite Observation Pre-Feed weight: 3.515 kg Post-Feed weight: 3.537 kg Milk Transferred (mL): 22 Position: Cross cradle Attachment/latch-on achieved: With difficulty Suck pattern: Suck burst and normal rest Swallow: Audible, consistent Behavior following feed: Alert, fussy (attempted second breast but baby fussy; parents had EBM with and babe took 2 oz of that via bottle) Pre-Nursing Left Nipple: Within Normal Limits Pre-Nursing Right Nipple: Within Normal Limits Post-Nursing Left Nipple: Within Normal Limits Post-Nursing Right Nipple: Within Normal Limits Assessments/Interventions Assessments/Interventions: Mom is enjoying skin to skin with kierra and he sometimes acts like he'll latch to the breast. Mom has not breastfed him since after while in the hospital. She would like to try and latch him and have the option of some vs only pumping and bottling. Discussed he will need to learn this skill, and it might take some time for him to be at the breast and successfully transfer milk since he has gotten used to bottle feeding. Worked with mom/baby to get latched; using the cradle hold, breast sandwich and a quick scoop to the breast, kierra did latch to mom's right breast for about 10 minutes and transferred 22ml. He was too fussy to latch to the other breast. Mom also reports he is past feeding time so more fussy than he usually is. Discussed early feeding cues to maximize chance he'll latch to the breast, expressing drops of milk to help ease the transition, and breast compression to keep him engaged in feeding. Discussed amount of milk mom is pumping easily exceeds what he needs for growth; she is feeding him the milk from one breast and freezing the milk from the other breast-so essentially twice as much as he needs. Ok to back off on pumping a little and will still meet his needs. Discussed stretching to every 2.5 hours, then to every 3 hours; watch her 24 hour totals to know she is still getting all he needs. Discussed measures for relief if she gets to him more but he only nurses on one side (can pump, hand express, or use a [place] for a little relief if needed on the other side). Education provided: Early feeding cues to maximize timing of latching, Asymmetric latch technique for wide/deep latch to increase milk (discussed b reast sandwich to help kierra latch more deeply), Transfer for baby and increase comfort for mom, Supply/demand nature of milk supply, Need for frequent stimulation/milk removal, Pumping for milk management and Milk collection, storage Follow-Up Suggested follow up: Appointment as needed Time Spent Time spent with patient (min): 70 (reviewing EMR and face to face with mom, dad, baby) Meds Home Medications and Allergies Home Medications ?Medication ?Instructions ?Recorded ?Confirmed ?Type sertraline 100 mg tablet 12.5 mg PO QDAY 08/16/23 12/17/23 History famotidine 20 mg tablet (Pepcid) 20 mg PO DAILY 11/14/23 12/17/23 History vit no.133-ferrous 1 tab PO DAILY 12/17/23 12/17/23 History fumarate 28 mg-folic acid 800 mcg tablet () Allergies Allergy/AdvReac Type Severity Reaction Status Date / Time mabel poe AdvReac Intermediate Verified 12/08/23 22:12
== END 2024-01-02 14:20 | disposition home or self-care (01) ==
LOC: OB LAC 14:21
PROVIDERS: PCP Student in an Organized Health Care Education/Training Program; Visit Provider Family Medicine
DX: Z39.1 Encounter for care and examination of lactating mother (principal)
CPT/HCPCS: G0463